=== PATIENT | male | born 1970 | race African-American/Black ===

== ENCOUNTER 2017-07-08 05:32 | Day surgery (SDC) | payer OTHER ==
[~2017-07-08] VITALS: Ht 180.3 cm; Wt 97.5 kg
--- NOTE | ~2017-07-08 | OP ---
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 POSTOPERATIVE DIAGNOSES: 1. 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 2. Possible secondary submucosal lesion in the proximal esophagus. 3. One small prepyloric ulcer. 4. LA grade III distal esophagitis. PROCEDURES: 1. Esophagogastroduodenoscopy with endoscopic mucosal resection of a lesion at 41 cm. 2. Endoscopic clip closure of the defect with a row of 3 endoscopic clips. 3. Hot biopsy forceps polypectomy type retrieval of the proximal esophageal lesion. SURGEON: Bong Nolen MD CHILDREN'S CHOIR DIRECTOR: None. BLOOD LOSS: Minimal. ANESTHESIA: General. COMPLICATIONS: None. The risks, possible complications and alternatives to the procedure were explained to the patient. He elects to proceed. OPERATIVE COURSE: The patient was conveyed to the operating room electively on 07/08/2017. General anesthesia was induced by the anesthesia staff. A bite block was inserted. A gastroscope was inserted into the mouth. It was advanced easily into the hypopharynx. The esophagus was easily intubated as were the stomach and duodenum. Upon withdrawal, retroflexed and angulus views were obtained. I withdrew into the esophagus. I noted a proximal esophageal lesion and this was removed utilizing the hot biopsy forceps polypectomy technique. This was also a submucosal lesion and when I probed it with my endoscopic forceps, it appeared to be firm. I then advanced to the distal esophagus. The lesion there at 41 cm was fairly lengthy. I advanced a sclerotherapy needle and performed a submucosal injection of epinephrine underneath this lesion in order to lift it up. I then withdrew the gastroscope. I loaded a programmer or analyst on to the gastroscope and then advanced it down into the esophagus again. I banded the distal end of the lesion. I then withdrew my endoscope and it appeared that most of the lesion was still present proximally. I then sucked up the proximal portion of the lesion and banded it. I removed the gastroscope. We removed the programmer or analyst. I then readvanced the OPERATIVE REPORT [id number] GEOVANY MCCRAY gastroscope. I advanced an endoscopic snare and snared the proximal portion of the lesion. The distal portion of the lesion was left behind as removing both the proximal and distal portions of the lesion would have left a significant esophageal defect. The distal band and the tissue there should fall off in about 7 days and leave a small ulcer, which should heal with time. I then advanced the snare on top of the band and used the coagulation setting and then the cut setting to amputate the lesion at its base. An endoscopic retrieval net was advanced. I grasped the lesion and withdrew it out through the mouth. I then readvanced the endoscope. I identified the ulcerated area where the lesion had been removed. This was closed with a row of 3 endoscopic clips. The gastroscope was then withdrawn under direct vision. The patient can be dismissed back to the shelter. I would like for him to stay on Levaquin for about 7 days. He needs to be on a soft diet for about the next week as well. The endoscopic clips should fall off with time. There is no need for the patient to see me in the office unless he develops a complication related to this operative procedure. TRANSINT:[id number] Voice Confirmation ID: [id number] DOCUMENT ID: [id number] BONG NOLEN MD at 1227 CC: [id number] DICTATION DATE: 07/08/17 0944 PRINTING AGENT: 07/08/17 1103 [facility] 07/08/17 [facility] [address] [place] [address]
[2017-07-08] MEDS ORDERED: PRILOSEC2.5 MG PO (06:16)
[2017-07-08] MEDS ORDERED: FERROUS SULFAT325 MG PO (06:17)
[2017-07-08] MEDS ORDERED: ZANTAC150 MG PO (06:17)
[2017-07-08 06:23] VITALS: BP 122/80; Ht 180.3 cm; Wt 97.5 kg
== END 2017-07-08 11:45 | disposition home or self-care (01) ==
LOC: D.OPS 05:32
DX: D49.0 Neoplasm of unspecified behavior of digestive system (principal); K25.9 Gastric ulcer, unspecified as acute or chronic, without hemorrhage or perforation; K20.9 Esophagitis, unspecified; Z01.812 Encounter for preprocedural laboratory examination